=== PATIENT | male | born 1955 | race Caucasian/White ===

== ENCOUNTER → 2021-06-28 | Outpatient (CLI) | payer BC ==
[~2021-06-28] MED LIST: AMLO5 PO; STELARA90 MG/1 ML SQ; ZESTORETIC 20-121 EA PO
[2021-06-28 16:35] LABS: Alanine Aminotransfer (ALT/SGP 17 U/L (12-78); Albumin, Blood 3.5 g/dL (3.4-5.0); Alk Phos 42 U/L (50-136); Anion Gap 4 mmol/L (6-16); Aspartate Aminotrans (AST/SGOT 13 U/L (12-37); Bilirubin, Total 0.7 mg/dL (0.1-1.0); Blood Urea Nitrogen 29 mg/dL (8-24); Bun/Creatinine Ratio 25.4 (12.0-20.0); CO2, Blood 27 mmol/L (21-32); Chloride, Blood 109 mmol/L (98-108); Creatinine, Blood 1.14 mg/dL (0.60-1.20); Globulin, Blood 3.4 g/dL (2.2-4.0); Glomerular Filtration Rate >60 (60-); Glucose, Blood 103 mg/dL (70-99); Potassium, Blood 4.3 mmol/L (3.5-5.5); Sodium, Blood 140 mmol/L (136-145); Total Protein, Blood 6.9 g/dL (6.4-8.2)
== END | disposition home or self-care (01) ==
LOC: LAB SHORT 13:40
PROVIDERS: Hospitalist
DX: I10 Essential (primary) hypertension (principal)
CPT/HCPCS: 80053

== ENCOUNTER 2023-09-26 08:06 | Day surgery (SDC) | payer OTHER ==
[~2023-09-26] VITALS: Ht 177.8 cm; Wt 146.0 kg
[2023-09-26] VITALS (15 sets, daily range): BP systolic 142–187; BP diastolic 72–95
[~2023-09-26 08:06] MED LIST changes: +METO25ER PO
[2023-09-26] MEDS ORDERED: Acetaminophen 500 MG Tab PO SCH ×2 (09:25→16:00)
[2023-09-26] MEDS ORDERED: Lactated Ringer's 1,000 ML IV SCH ×2 (09:25→10:55)
[2023-09-26] MEDS ORDERED: OxyCODONE HCL 10 MG TABCR PO SCH (09:25)
[2023-09-26] MEDS ORDERED: CeFAZolin Sodium 3,000 MG in NS 100 ML IV SCH (09:25)
[2023-09-26] MEDS ORDERED: Chlorhexidine Mouth Care 15 ML UDC MT SCH (09:25)
[2023-09-26] MEDS ORDERED: Ropivacaine 0.5% HCl/Pf 67.75 MG,EPINEPHrine HCL 0.25 MG,Ketorolac Tromethamine 15 MG,C... INFIL SCH (09:25)
[2023-09-26] MEDS ORDERED: Promethazine HCl 25 MG Tab PO PRN (10:55)
[2023-09-26] MEDS ORDERED: OxyCODONE HCL 5 MG TAB PO PRN ×2 (10:55)
[2023-09-26] MEDS ORDERED: Metoclopramide HCl 5MG / ML 2ML Vial IV PRN (10:55)
[2023-09-26] MEDS ORDERED: Magnesium Hydroxide Conc 10 ML UDC PO PRN (10:55)
[2023-09-26] MEDS ORDERED: Ondansetron HCl 2 MG / ML 2ML Vial IV PRN ×2 (10:55→12:55)
[2023-09-26] MEDS ORDERED: FLU VACC QS2023-24(6MOS UP)/PF 60 MCG/0.5 ML SYRINGE IM SCH (11:00)
[2023-09-26] MEDS ORDERED: DiphenhydrAMINE HCL 25 MG Cap PO PRN (11:00)
[2023-09-26] MEDS ORDERED: HYDROmorphone HCl/Pf 1MG SYR IV PRN ×2 (11:00→12:55)
[2023-09-26] MEDS ORDERED: Bisacodyl 10 MG Supp PR PRN (11:00)
[2023-09-26] MEDS ORDERED: propofoL 20 ML IV ONE ×4 (11:19→12:47)
--- NOTE | 2023-09-26 12:13 | NUR ---
09/26/23 1213 Aurora Javed SPINAL NERVE BLOCK COMPLETED BY DR. COX UPON ENTRY TO OR. PT TOLERATED WELL.
[2023-09-26] MEDS ORDERED: Midazolam HCl 1MG / ML 2ML Vial ONE (12:28)
[2023-09-26] MEDS ORDERED: Labetalol HCL 5 MG/ML 4ML Injection (Single Dose) IV PRN (12:50)
[2023-09-26] MEDS ORDERED: FentaNYL Citrate 50 MCG/ML 2 ML Injection IV PRN (12:50)
[2023-09-26] MEDS ORDERED: Albuterol 2.5 MG/3 ML VIAL INH PRN (12:50)
[2023-09-26] MEDS ORDERED: ePHEDrine Sulfate 50 MG/ML 1ML Injection IV PRN (12:50)
[2023-09-26] MEDS ORDERED: Atropine Sulfate 0.1 MG/ML 10ML SYR IV PRN (12:55)
[2023-09-26] MEDS ORDERED: Dexamethasone Sodium Phosphate 4 MG/ML 5ML VIAL IV PRN (12:55)
[2023-09-26] MEDS ORDERED: LORazepam 2 MG/ML 1ML Injection IV PRN (12:55)
[2023-09-26] MEDS ORDERED: Morphine Sulfate 4 MG/1 ML Injection IV PRN (13:00)
[2023-09-26] MEDS ORDERED: Ketorolac Tromethamine 15mg Vial IV PRN (13:10)
[2023-09-26] MEDS ORDERED: Ketorolac Tromethamine 15mg Vial IV SCH (18:00)
[2023-09-26] MEDS ORDERED: AmLODIPine Besylate 5 MG Tab PO ONE (18:10)
--- NOTE | 2023-09-26 18:20 | NUR ---
SHIFT SUMMARY POD 0 L TKA. AQUACEL AND ANDERS WRAP IN PLACE. POLAR SHILO ON. MEDICATED FOR PAIN TOLERATES WELL. DENIES N/V. DENIES N/T. PATIENT IS AOX4, ABLE TO TRANSFER TO CHAIR WITH 1 ASSIST FWW. GB. TOLERATING REG DIET. ORIENTED TO CALL LIGHT AND CALLS APPROPRIATELY.
[2023-09-26] MEDS ORDERED: CeFAZolin Sodium 2,000 MG in NS 50 ML IV SCH (19:00)
[2023-09-26] MEDS ORDERED: Docusate Sodium 100 MG Cap PO SCH (21:00)
[2023-09-26] MEDS ORDERED: HydrALAZINE HCl 25 MG Tab PO PRN (21:05)
[2023-09-27 00:21] VITALS: BP 179/70
[2023-09-27 03:58] VITALS: BP 129/62
[2023-09-27 04:25] LABS: BASOPHILS ABSOLUTE AUTO 0.03 K/mm3 (0.00-0.23); BASOPHILS PERCENT AUTO 0 % (0-2); EOSINOPHILS ABSOLUTE AUTO 0.19 K/mm3 (0.00-0.68); EOSINOPHILS PERCENT AUTO 2 % (0-6); Hemoglobin 13.2 g/dL (13.5-17.5); IMMATURE GRAN ABSOLUTE AUTO 0.06 K/mm3 (0.00-0.10); IMMATURE GRAN PERCENT AUTO 1 % (0-1); LYMPHOCYTES ABSOLUTE AUTO 1.98 K/mm3 (0.84-5.20); LYMPHOCYTES PERCENT AUTO 19 % (21-46); MONOCYTES ABSOLUTE AUTO 1.28 K/mm3 (0.16-1.47); MONOCYTES PERCENT AUTO 13 % (4-13); Mean Corpuscular HGB 29.4 pg (26.0-34.0); Mean Corpuscular Volume 89 fL (80-100); Mean Platelet Volume 9.2 fL (9.1-12.4); NEUTROPHILS ABSOLUTE AUTO 6.67 K/mm3 (1.96-9.15); NEUTROPHILS PERCENT AUTO 65 % (41-73); Platelet Count 199 K/mm3 (150-400); RDW Coefficient Variation 13.5 % (11.7-14.2); RDW Standard Deviation 43.6 fL (35.1-46.3); Red Blood Cell Count 4.49 M/mm3 (4.30-5.90); White Blood Cell Count 10.21 K/mm3 (4.00-11.30)
[2023-09-27 04:44] LABS: Bun/Creatinine Ratio 24.6 (12.0-20.0); Calcium, Blood 8.5 mg/dL (8.5-10.1); Creatinine, Blood 1.14 mg/dL (0.60-1.20); Potassium, Blood 3.8 mmol/L (3.5-5.5)
--- NOTE | 2023-09-27 05:20 | NUR ---
SHIFT SUMMARY POD1 L TKA. SENSATION AND CIRCULATION REMAINS INTACT IN LLE. DRESSING APPEARS C/D/I. VSS, HTN NOTED AFTER AMBULATION DURING THE NIGHT. THIS RESOLVES ON ITS OWN. PT SLEPT ON AND OFF T/O THE NIGHT. AMBULATED TO THE BATHROOM TO VOID W/O DIFFICULTY. TOLLERATING PO INTAKE W/O N/V. NO ACUTE EVENTS NOTED T/O THE NIGHT. PLAN FOR PT AND D/C TODAY.
[2023-09-27 07:01] VITALS: BP 156/80
[2023-09-27] MEDS ORDERED: Metoprolol Succinate 25 MG TABCR PO SCH (09:00)
[2023-09-27] MEDS ORDERED: Lisinopril 20 MG Tab PO SCH (09:00)
[2023-09-27] MEDS ORDERED: AmLODIPine Besylate 5 MG Tab PO SCH (09:00)
[2023-09-27] MEDS ORDERED: Aspirin 81 MG Chew PO SCH (09:00)
[2023-09-27] MEDS ORDERED: HydroCHLOROthiazide 25 mg Tab PO SCH (09:00)
[2023-09-27] MEDS ORDERED: ASPI81CH PO (09:01)
[2023-09-27] MEDS ORDERED: Percocet 5-3251 EACH PO (09:01)
--- NOTE | 2023-09-27 10:15 | NUR ---
DISCHARGE NOTE: PATIENT WAS EDUCATED ON DISCHARGE INSTRUCTIONS. HE VERBALIZED UNDERSTANDING OF INSTRUCTIONS AND HAD NO FURTHER QUESTIONS AT THIS TIME. IV WAS TAKEN OUT AND WNL. HARD PERSCRIPTIONS WERE PLACED IN THE DISCHARGE INSTRUCTIONS FOLDER WITH HIS EXTRA AQUACELS. HIS LEFT KNEE HAS ANDERS WRAP AND AQUACEL UNDERNEATH THAT IS C/D/I. PATIENT DENIES NUMBNESS OR TINGLING IN ALL EXTREMITIES. HE IS A SBA WITH FWW AND GAIT BELT. PATIENT IS VOIDING AND TOLERATING PO INTAKE. HE IS DRESSED AND HAS HIS PERSONAL ITEMS IN THE ROOM GATHERED. HE IS WAITING FOR HIS RIDE TO ARRIVE TO COME AND TAKE HIM HOME.
--- NOTE | 2023-09-27 10:45 | NUR ---
PATIENT IS BEING WHEELCHAIRED OUT TO HIS TO BE TAKEN HOME WITH ALL OF HIS PERSONAL BELONGINGS.
== END 2023-09-27 10:48 | disposition home or self-care (01) ==
LOC: SURS 08:06 → ORSCMMR 08:06 → ORD 10:00 → ORSCMMR 12:30 → ORD 12:30 → SURS 13:48 → ORSCMMR 09-27 10:48
PROVIDERS: Orthopaedic Surgery
PROC: 0SRD0JA Replacement of Left Knee Joint with Synthetic Substitute, Uncemented, Open Approach (ICD-10-PCS; principal; 2023-09-26 10:00)
DX: M17.12 Unilateral primary osteoarthritis, left knee (principal); I10 Essential (primary) hypertension; G47.33 Obstructive sleep apnea (adult) (pediatric); E66.01 Morbid (severe) obesity due to excess calories; Z68.42 Body mass index [BMI] 45.0-49.9, adult; Z79.899 Other long term (current) drug therapy
CPT/HCPCS: 36415; 73560-LT; 80048; 82947; 85025; 97110; 97116; 97162; 97530; A9270; C1713; C1776; J0171; J0690; J0735; J1885; J2250; J2405; J2704; J2795; J7120

== ENCOUNTER → 2024-11-13 | Outpatient (CLI) | payer OTHER ==
[~2024-11-13] MED LIST changes: +ASPI81CH PO; +Percocet 5-3251 EACH PO
[2024-11-13 15:44] LABS: Bun/Creatinine Ratio 20.6 (12.0-20.0); Calcium, Blood 8.8 mg/dL (8.5-10.1); Creatinine, Blood 1.26 mg/dL (0.60-1.20); Potassium, Blood 3.5 mmol/L (3.5-5.5)
== END | disposition home or self-care (01) ==
LOC: LAB SHORT 13:36 → LAB 13:36
PROVIDERS: Hospitalist
DX: I10 Essential (primary) hypertension (principal)
CPT/HCPCS: 80048